=== PATIENT | female | born 1990 | race Caucasian/White ===

== ENCOUNTER 2018-09-04 01:04 | Inpatient (IN) | payer MEDICARE ==
[2018-09-04] VITALS (18 sets, daily range): BP systolic 95–118; BP diastolic 51–82
[~2018-09-04] VITALS: Ht 165.1 cm; Wt 61.8 kg
--- NOTE | 2018-09-04 01:13 | ED.ADGEN ---
Past History Past Medical History: Abscess, Diabetes, IBS, Other Past Surgical History: Other Past Surgical History Drainage of Axel-rectal / Gluteal abscess on 09/01 Smoking: Cigarettes Alcohol Use: Occasionally Drug Use: Marijuana Adult General Chief Complaint Chief Complaint ".. I ve been vomiting.. can't take my antibiotic pills ( Bactrim/ Metronidazole),, I got diabetes.. since age 4... my glucose meter show s too high... to read.. I first started getting sick.. about three weeks ago.. I felt like I had a vaginal discharge.. I went to the [facility] clinic.. they said it was normal to have a vaginal discharge... but I did not believe them.. so I made an apt. at [facility] [employer].... and by then I had what I thought was an in grown hair on my butt... but the put me on Flagyl and sulfa... but I could not afford the meds... the next thing I know... I had this big boil .. abscess thing on my butt.. and went to the [facility] ED... and I got admitted on 08/31.. they put me asleep and drained and packed the boils on my butt on the ... and discharged me on the ... but I have been vomiting and can't keep the meds down... been feeling like I have fever ... and chills and my sugars are up... ".. " I have just moved here from [place].. and have not been able to find a yet...." HPI HPI Patient is a 28 year old female who presents with above hx of nausea, vomiting, fever, chills , high glucose, with recent Incision, drainage and packing of gluteal perirectal abscess. Pt. has hx of known DM, peripheral neuropathy, gastroparesis, IBS. Pt. has hx of one with a miscarry. Pt. reports she had too many admissions for DKA to count in her life time. Pt. hx of STD and herpes. . Possible risk of exposure to HIV years ago. Was tested at that time and it was negative. No follow up tests. Last tetanus was 2013 after a dog bite. Pt. denies IV drug use, but does smoke tobacco and marijuana. Pt. denies any specific recent ill contacts. Pt. lives currently in [facility]. Review of Systems Review of Systems Constitutional: Hx. of fever or chills [] Eyes: Denies change in visual acuity, redness, or eye pain [] HENT: Denies nasal congestion or sore throat [] Respiratory: Denies cough or shortness of breath [] Cardiovascular: No additional information not addressed in HPI [] GI: Hx. of generalized abdominal pain, nausea, vomiting, . Denies bloody stools or diarrhea []Complaints of Rt. Gluteal and axel rectal abscess. : Denies dysuria or hematuria [] Musculoskeletal: Denies back pain or joint pain [] Integument: Denies rash or skin lesions [] Neurologic: Denies headache, focal weakness or sensory changes [] Endocrine: Hx. of polyuria All other systems were reviewed and found to be within normal limits, except as documented in this note. Family History Family History DM, HTN Current Medications Current Medications See nursing for home meds Allergies Allergies No known drug allergies Physical Exam Physical Exam Constitutional: in moderately acute distress, non-toxic appearance. [] HENT: Normocephalic, atraumatic, bilateral external ears normal, oropharynx dry , no oral exudates, nose normal. [] Eyes: PERRLA, EOMI, conjunctiva normal, no discharge. [] Neck: Normal range of motion, no tenderness, supple, no stridor. [] Cardiovascular:Tachycardia Heart rate regular rhythm, no murmur [] Lungs & Thorax: Bilateral breath sounds equal at apexes with scattered wheezes on auscultation [] Abdomen: Bowel sounds decreased, soft, generalized tenderness, no masses, no pulsatile masses. [Vaginal - no discharge. Lt. gluteal / axel-rectal cellulitis with packing. Packing removed- base incision drainage is dry. No obvious fluctuation. Skin: Warm, dry, no erythema, no rash. Tattoos. Poor turgor. Back: No tenderness, no CVA tenderness. [] Extremities: No tenderness, no cyanosis, no clubbing, ROM intact, no edema. [] Neurologic: Alert and oriented X 3, normal motor function, decreased plantar sensory function, no focal deficits noted. [] Psychologic: Affect anxious, judgement normal, mood normal. [] Current Patient Data Vital Signs Lab Results Laboratory Tests Test 09/04/18 01:25 Glucose (Fingerstick) 427 mg/dL (70-99) H EKG EKG My interpretation of EKG shows a sinus tachycardia at approximately 108 bpm. Does have nonspecific anterior septal changes but no findings acute STEMI with contralateral changes.[] Radiology/Procedures Radiology/Procedures My interpretation of chest x-ray and acute abdomen shows[] no acute cardiopulmonary findings. No free air in the diaphragm. Abdomen film shows nonspecific bowel gas pattern. Does have stool throughout colon suggestive of constipation. CT of pelvis shows no obvious perirectal abscess. See formal report when available. Course & Med Decision Making Course & Med Decision Making Pertinent Labs and Imaging studies reviewed. (See chart for details) Patient to be admitted to for further tx. and evaluation. [] Final Impression Final Impression Impression: 1. DM-Hyperglycemia- DKA (Veinous - ABG= 7.211,HCO3 11.9) 2. Hx of Axel-rectal, Lt gluteal abscess- Drainage and packing on 09/01 3. Financial noncompliance with antibiotics 4. Nausea/vomiting 5. SIR's/ Sepsis 6. Constipation 7. Dehydration 8. Thrombocytosis 422 9. Elevated lactic acid 2.1 10. Elevated Sed. Rate 30 [] Dragon Disclaimer Dragon Disclaimer This electronic medical record was generated, in whole or in part, using a voice recognition dictation system. Dragon Disclaimer This chart was dictated in whole or in part using Voice Recognition software in a busy, high-work load, and often noisy Emergency Department environment. It may contain unintended and wholly unrecognized errors or omissions. Discharge Summary Visit Information Final Diagnosis Problems Medical Problems: (1) DKA (diabetic ketoacidoses) Status: Acute Brief Hospital Course Lab Results Laboratory Tests Test 09/04/18 01:25 Glucose (Fingerstick) 427 mg/dL (70-99) Brief Hospital Course Ms. Colmenares is a 28 old female who presented with DKA- Admitted Dr. Bishop Discharge Information Condition at Discharge: Improved, Stable VIRGEN HAGAN MD Sep 04, 2018 01:13
[2018-09-04] MEDS ORDERED: VANCOMYCIN 1 GM in IV NORMAL SALINE 250ML 250 ML IV ONE (01:45)
[2018-09-04] MEDS ORDERED: IV NORMAL SALINE 1,000ML 1,000 ML IV ONE (02:00)
[2018-09-04] MEDS ORDERED: IV RINGERS SOLUTION,LACTATED 1,000 ML IV SCH ×3 (02:00→04:15)
[2018-09-04] MEDS ORDERED: FAMOTIDINE 20 MG/2 ML VIAL IVP ONE (02:00)
[2018-09-04] MEDS ORDERED: INSULIN REGULAR VIAL 150 UNIT in 0.9 % SODIUM CHLORIDE 150ML 150 ML IV ONE ×3 (02:00→04:15)
[2018-09-04] MEDS ORDERED: ONDANSETRON PF 4 MG/2 ML VIAL. IV ONE (02:00)
[2018-09-04] MEDS ORDERED: IV NORMAL SALINE 50ML 50 ML ONE (02:04)
[2018-09-04] MEDS ORDERED: cefTRIAXone SODIUM 1 GM VIAL ONE (02:04)
[2018-09-04] MEDS ORDERED: VANCOMYCIN 1 GM VIAL. ONE (02:04)
[2018-09-04] MEDS ORDERED: IV NORMAL SALINE 500ML 500 ML ONE (02:04)
[2018-09-04] MEDS ORDERED: 0.9 % SODIUM CHLORIDE 150ML 150 ML ONE (02:05)
[2018-09-04] MEDS ORDERED: CONTRAST GIVEN MC PRN (02:15)
[2018-09-04 02:29] LABS: BASO # 0.1 x10^3/uL (0.0-0.2); BASO % 1 % (0-3); EOS # 0.1 x10^3/uL (0.0-0.7); EOS % 1 % (0-3); HEMATOCRIT 45.7 % (36.0-47.0); HEMOGLOBIN 14.6 g/dL (12.0-15.5); LYMPH % 19 % (24-48); MEAN CORPUSCULAR HEMOGLOBIN 27 pg (25-35); MEAN CORPUSCULAR HGB CONC 32 g/dL (31-37); MEAN CORPUSCULAR VOLUME 83 fL (79-100); MONO # 0.3 x10^3/uL (0.0-1.1); MONO % 3 % (0-9); NEUT # 7.9 x10^3uL (1.8-7.7); NEUT % 76 % (31-73); PLATELET COUNT 422 x10^3/uL (140-400); RED BLOOD COUNT 5.51 x10^6/uL (3.50-5.40); RED CELL DISTRIBUTION WIDTH 16.5 % (11.5-14.5); WHITE BLOOD COUNT 10.4 x10^3/uL (4.0-11.0)
[2018-09-04] MEDS ORDERED: VANCOMYCIN 1.5 GM in IV NORMAL SALINE 500ML 500 ML IV ONE (02:30)
[2018-09-04] MEDS ORDERED: IOHEXOL 300 MG/ML 75 ML VIAL. IV ONE (02:30)
[2018-09-04 02:41] LABS: ALBUMIN 3.9 g/dL (3.4-5.0); CALCIUM 10.1 mg/dL (8.5-10.1); CREATININE 0.9 mg/dL (0.6-1.0); DIRECT BILIRUBIN 0.1 mg/dL (0.0-0.2); GFR 75.1; POTASSIUM 4.4 mmol/L (3.5-5.1); TOTAL BILIRUBIN 0.4 mg/dL (0.2-1.0); TOTAL PROTEIN 9.1 g/dL (6.4-8.2)
[2018-09-04 02:55] LABS: BILIRUBIN,URINE NEG (NEG); CLARITY,URINE CLEAR; COLOR,URINE STRAW; GLUCOSE,URINE 500 mg/dL (NEG); NITRITE,URINE NEG (NEG); UROBILINOGEN,URINE 0.2 mg/dL (0.2 mg/dL)
--- NOTE | 2018-09-04 02:55 | RAD ---
CT scan of the pelvis with contrast 09/04/2018 CLINICAL HISTORY: History of perirectal abscess post removal 3 days ago. Pelvic pain. Fever. TECHNIQUE: After the intravenous administration of 75 cc of Omnipaque 300, contiguous, 5 mm axial sections were obtained through the pelvis. One or more of the following individualized dose reduction techniques were utilized for this study: 1. Automated exposure control. 2. Adjustment of the mA and/or kV according to patient size. 3. Use of iterative reconstruction technique. FINDINGS: The urinary bladder is distended with urine. No adnexal mass is seen. Small amount of free fluid is seen within the pelvis. A moderate amount of stool is seen involving the rectum and sigmoid colon. The appendix is well-visualized and is within normal limits. No perirectal abscess is seen. The osseous structures are grossly intact. IMPRESSION: 1. Small amount of free fluid is seen within the pelvis. 2. No perirectal abscess is seen. Electronically signed by: Jabari Mendoza MD (09/04/2018 2:52 AM) [facility]
--- NOTE | 2018-09-04 02:56 | RAD ---
PA and lateral chest radiographs 09/04/2018 Clinical History: Weakness and fever. PA and lateral digital radiographs of the chest were obtained. No previous studies are available for comparison. The cardiac and mediastinal silhouettes are within normal limits in size and configuration. No pulmonary infiltrate is seen. No pleural effusion or pneumothorax is noted. The osseous structures are grossly intact. Impression: No radiographic evidence of active cardiopulmonary disease. Electronically signed by: Jabari Mendoza MD (09/04/2018 2:53 AM) [facility]
--- NOTE | 2018-09-04 02:57 | RAD ---
Two-view abdomen radiographs 09/04/2018 CLINICAL HISTORY: Weakness, nausea, vomiting and fever. Supine and erect AP digital radiographs of the abdomen/pelvis were obtained. The lung bases are clear. The abdominal bowel gas pattern is nonobstructive. A moderate amount of stool is seen throughout the colon. No radiopaque calculus is seen. There is no evidence of free air. The osseous structures are grossly intact. IMPRESSION: Nonobstructive bowel gas pattern. Electronically signed by: Jabari Mendoza MD (09/04/2018 2:54 AM) [facility]
[2018-09-04 02:58] LABS: BACTERIA,URINE FEW /HPF (0-FEW); SQUAMOUS EPITHELIAL CELL,UR FEW /LPF; WBC,URINE OCC /HPF (0-4)
[2018-09-04] MEDS ORDERED: DIPHTH,PERTUSS(ACELL),TET TOX 0.5 ML DISP.SYRIN. VAX IM ONE (03:00)
[2018-09-04 03:06] LABS: BARBITURATES NEG (NEG); BENZODIAZEPINES NEG (NEG); CANNABINOIDS NEG (NEG); COCAINE NEG (NEG); METHADONE NEG (NEG); OPIATES NEG (NEG); PHENCYCLIDINE NEG (NEG)
[2018-09-04 03:07] LABS: AMPHETAMINE/METHAMPHETAMINE NEG (NEG)
[2018-09-04 03:08] LABS: BGAS PH 7.21 (7.35-7.45)
[2018-09-04 03:25] LABS: SEDIMENTATION RATE 30 (0-25)
[2018-09-04] MEDS ORDERED: ONDANSETRON PF 4 MG/2 ML VIAL. IV PRN (04:15)
[2018-09-04] MEDS ORDERED: DULO30CA2 PO (05:03)
[2018-09-04] MEDS ORDERED: INSU100I17 SQ (05:03)
[2018-09-04] MEDS ORDERED: ACYC400T PO (05:03)
[2018-09-04] MEDS ORDERED: INSU100I32 SQ (05:03)
[2018-09-04] MEDS ORDERED: DOXE10CA PO (05:03)
[2018-09-04] MEDS: VANCOMYCIN PER PHARMACY MC PRN (05:55)
--- NOTE | 2018-09-04 06:24 | EKG ---
[address] [address] Test Date: 2018-09-03 Test Time: 12:19:47 Pat Name: JUSTIN ONEILL Department: Room: [facility] 1 Gender: F Load Dropper: : 1990 Requested By: VIRGEN HAGAN Order Number: [id number] Reading MD: Nigel Washington MD Measurements Intervals [place] Rate: 79 P: -14 NH: 154 QRS: -41 QRSD: 106 T: 26 QT: 410 QTc: 471 Interpretive Statements SINUS RHYTHM VENTRICULAR PREMATURE COMPLEX(ES) Electronically Signed On 09-06-2018 14:17:04 CDT by Nigel Washington MD
[2018-09-04] MEDS ORDERED: IPRATRPIUM/ALBUTEROL 0.5/2.5MG 3 ML NEBU. NEB SCH (08:00)
[2018-09-04] MEDS ORDERED: IV DEXTROSE 5 %-0.45 % NACL 1,000 ML IV SCH (08:45)
[2018-09-04] MEDS ORDERED: INSULIN REGULAR VIAL 150 UNIT in 0.9 % SODIUM CHLORIDE 150ML 150 ML IV PRN (08:45)
--- NOTE | 2018-09-04 11:28 | HP ---
ADMIT DATE: 09/04/2018 HISTORY OF PRESENT ILLNESS: The patient is a 28-year-old -[place] female patient who came to the Emergency Room complaining of recurrent bouts of nausea and vomiting. Her blood sugar was extremely high and she apparently was seen and did complain of some vaginal discharge. She was seen at [facility] and they told her that it was normal to have a vaginal discharge, but she did not believe them, so she made an appointment at [place] [employer] [employer]. By then, she had what seems an ingrown hair in her gluteal area and she was started on Flagyl and sulfa drugs, but she could not afford the medication and she subsequently developed a big boil or an abscess and she was seen at the Emergency Room of [facility] where she was admitted on 08/31/2018 and under general anesthesia, the abscess was opened and packed and she was discharged on 09/02/2018. However, she has been vomiting since that time, cannot keep any medication down. She felt that she has fever and chills. Her blood sugar has been extremely high. She apparently has moved from [facility] and has not had established a primary care physician here. She was evaluated in the Emergency Room and was found to be in diabetic ketoacidosis. She has also history of STDs and herpes genitalis and possible risk of exposure to HIV years ago. LABORATORY DATA: Her lab work on admission showed that her white cell count was 10,400. Her chemistry showed that her blood sugar was high at 427. Her anion gap was high, but bicarb was only 12. She has hyponatremia. She was found to have an abscess in the right gluteal area and was also admitted and started on IV antibiotics in the form of vancomycin, ceftriaxone and Flagyl. PAST MEDICAL HISTORY: Significant for type 1 insulin-dependent diabetes since she was 4 years old. She has genital herpes, peripheral neuropathy and questionable diabetic gastroparesis. PAST SURGICAL HISTORY: Significant for incision and drainage of her right gluteal abscess, but no other surgical intervention. ALLERGIES: She has no known drug allergies; however, she is allergic to BANANA and W[place]MELON. MEDICATIONS: She is currently on following medications: She is on acyclovir 400 mg at bedtime, doxepin 10 mg at bedtime, duloxetine for Cymbalta 30 mg at bedtime. She is on NovoLog insulin as insulin sliding scale and Basaglar KwikPen 15 units subcutaneously twice a day. FAMILY HISTORY: She has 3 brothers and 5 sisters, all younger and healthy. Her father is alive and healthy and mother is alive at the age of 45 and has problem with thyroid. SOCIAL HISTORY: She is , has no children. She smokes cigars, cigarettes and marijuana. Drinks alcohol occasionally. She was working in [employer]. REVIEW OF SYSTEMS: The patient denied any blurring of vision. She has astigmatism, but denied any glaucoma or macular degeneration. Denied any earache, tinnitus or sensorineural deafness. Denied any nosebleeds, stuffy nose or postnasal drip. Denied any sore throat, sore tongue, toothache, hoarseness of voice or difficulty swallowing. She did have recurrent bouts of nausea and vomiting. Denied any diarrhea. Denied any hematemesis, melena or hematochezia. Denied any dysuria, frequency or hematuria. Did complain of chills and rigors, although she has no fever on admission. PHYSICAL EXAMINATION: GENERAL: On arrival to the Emergency Room, she was tachypneic, but there was no pallor, jaundice, cyanosis, or thyromegaly. No jugular venous distention. No limb edema. VITAL SIGNS: Her heart rate was 105, blood pressure was 118/78, temperature was 97.7, respiratory rate 20, and oxygen saturation was 100% on room air. HEAD, EYES, EARS, NOSE AND THROAT: Showed normocephalic, atraumatic. NECK: Supple. HEART: Showed normal first and second heart sounds with no gallop, rub or murmur. CHEST: Clear to auscultation. No crepitation or rhonchi. ABDOMEN: Distended, soft, nontender. No guarding or rigidity. No organomegaly. All hernial orifices intact. Bowel sounds normal. NEUROLOGIC: She is awake, alert, responding appropriately. All cranial nerves intact. EXTREMITIES: She moves extremities without difficulty. LABORATORY DATA: Her lab work on admission showed that her white cell count was 10,400, hemoglobin 15, hematocrit 45, MCV 83 and platelet count of 422,000 with normal manual differential. Her blood gas showed a pH of 7.21, pCO2 of 30, pO2 of 32, bicarbonate 12, and oxygen saturation was 51% on FiO2 of 21%. Her prothrombin time was 9.5, INR 1, aPTT was 26. Her chemistry showed serum sodium of 132, potassium 4.54, chloride 92, bicarbonate 12, anion gap of 28, BUN 14, creatinine 0.9, estimated GFR was 75 mL per minute. Her glucose was 427, calcium was 7.1. Total bilirubin, AST, ALT, alkaline phosphatase were normal. Total protein was 9.1, albumin 3.9. Her amylase and lipase are normal. Her urinalysis was essentially unremarkable. Her test was negative and her toxic screen was negative. Her urine test was negative. IMPRESSION: In summary, this is a 28-year-old female patient who was admitted with mild diabetic ketoacidosis. She has also had right gluteal abscess, status post incision and drainage. PLAN: To continue the IV fluid, continue with insulin drip, continue with IV antibiotics in the form of ceftriaxone, vancomycin and Flagyl. SHAYAN LAKHANI MD DR: JASON/zhanna JOB#: [id number] / [id number]
[2018-09-04] MEDS ORDERED: INSULIN LISPRO 300 UNITS/3 ML INSULN.PEN. SQ SCH (11:30)
[2018-09-04] MEDS ORDERED: DEXTROSE 50% 25 GM / 50ML DISP.SYRIN. IV PRN (11:30)
[2018-09-04] MEDS: INSULIN LISPRO 300 UNITS/3 ML INSULN.PEN. SQ SCH ×2 (12:41→17:14)
[2018-09-04] MEDS: oxyCODONE/APAP 7.5/325 1 TAB TABLET PO PRN (15:31)
[2018-09-04] MEDS: VANCOMYCIN 1 GM in IV NORMAL SALINE 250ML 250 ML IV SCH (15:43)
[2018-09-04] MEDS ORDERED: diphenhydrAMINE HCL 25 MG CAPSULE PO PRN (16:00)
[2018-09-04] MEDS: INSULIN GLARGINE 300 UNITS/3 ML INSULN.PEN. SQ SCH (19:43)
[2018-09-04] MEDS: IV NORMAL SALINE 1,000ML 1,000 ML IV SCH (19:43)
[2018-09-04] MEDS: LACTOBACILLUS RHAMNOSUS GG 1 CAPSULE. PO SCH (19:45)
[2018-09-04] MEDS: POLYETHYLENE GLYCOL 3350 17 GM PACKET. PO SCH (19:45)
[2018-09-04] MEDS: DULoxetine HCL 30 MG CAPSULE.DR PO SCH (19:45)
[2018-09-04] MEDS: ACYCLOVIR 200 MG CAPSULE PO SCH (19:46)
[2018-09-04] MEDS: DOXEPIN HCL 10 MG CAPSULE PO SCH (19:46)
[2018-09-05] VITALS (8 sets, daily range): BP systolic 102–133; BP diastolic 67–89
[2018-09-05] MEDS: VANCOMYCIN 1 GM in IV NORMAL SALINE 250ML 250 ML IV SCH ×3 (03:36→23:58)
[2018-09-05] MEDS: oxyCODONE/APAP 7.5/325 1 TAB TABLET PO PRN ×5 (03:49→22:44)
[2018-09-05] MEDS: IV NORMAL SALINE 1,000ML 1,000 ML IV SCH ×2 (05:57→19:10)
[2018-09-05 06:55] LABS: BASO # 0.1 x10^3/uL (0.0-0.2); BASO % 1 % (0-3); EOS # 0.3 x10^3/uL (0.0-0.7); EOS % 4 % (0-3); HEMATOCRIT 31.9 % (36.0-47.0); HEMOGLOBIN 10.4 g/dL (12.0-15.5); LYMPH # 3.5 x10^3/uL (1.0-4.8); LYMPH % 35 % (24-48); MEAN CORPUSCULAR HEMOGLOBIN 26 pg (25-35); MEAN CORPUSCULAR HGB CONC 33 g/dL (31-37); MEAN CORPUSCULAR VOLUME 80 fL (79-100); MONO # 0.7 x10^3/uL (0.0-1.1); MONO % 7 % (0-9); NEUT # 5.3 x10^3uL (1.8-7.7); NEUT % 54 % (31-73); PLATELET COUNT 364 x10^3/uL (140-400); RED BLOOD COUNT 3.96 x10^6/uL (3.50-5.40); RED CELL DISTRIBUTION WIDTH 16.1 % (11.5-14.5); WHITE BLOOD COUNT 9.9 x10^3/uL (4.0-11.0)
[2018-09-05 06:58] LABS: CALCIUM 7.9 mg/dL (8.5-10.1); CREATININE 0.6 mg/dL (0.6-1.0); GFR 119.9; POTASSIUM 3.4 mmol/L (3.5-5.1)
[2018-09-05] MEDS: INSULIN LISPRO 300 UNITS/3 ML INSULN.PEN. SQ SCH ×4 (08:00→16:48)
[2018-09-05] MEDS: LACTOBACILLUS RHAMNOSUS GG 1 CAPSULE. PO SCH ×2 (10:06→20:57)
[2018-09-05] MEDS: INSULIN GLARGINE 300 UNITS/3 ML INSULN.PEN. SQ SCH ×2 (10:08→21:00)
[2018-09-05 16:03] LABS: VANC TR 6.1 mcg/mL (10.0-20.0)
[2018-09-05] MEDS: VANCOMYCIN PER PHARMACY MC PRN (16:32)
--- NOTE | 2018-09-05 20:05 | PN ---
DATE: 09/05/2018 SUBJECTIVE: The patient is sitting slightly propped up in bed, in no apparent respiratory distress. On questioning her, she denies any complaint. The nursing staff did not voice any concerns that she has an eventful night. PHYSICAL EXAMINATION: GENERAL: When I examined her, she looked pale, but no jaundice, cyanosis, or thyromegaly. No jugular venous distention. No limb edema. VITAL SIGNS: Her heart rate was 106, blood pressure was 129/89, temperature was 97.7, respiratory rate 20, and oxygen saturation was 93% on room air. HEAD, EYES, EARS, NOSE AND THROAT: Normocephalic, atraumatic. NECK: Supple. HEART: Showed normal first and second heart sounds. No gallop, rub or murmur. CHEST: Clear to auscultation. No crepitation or rhonchi. ABDOMEN: Distended, soft, nontender. No guarding or rigidity. No organomegaly. All hernial orifice intact. Bowel sounds normal. NEUROLOGIC: She was awake, alert, responding appropriately. All cranial nerves intact. She moves extremities without difficulty. She ambulates without assistance or assistive devices. Her intake was 2115, no output was recorded. LABORATORY DATA: As of this morning, her serum sodium was 137, potassium 3.4, chloride 105, bicarbonate 22, anion gap of 10, BUN 9, creatinine 0.6, estimated GFR was 120 mL per minute, her glucose was 154, calcium was 7.9. White cell count was 9900, hemoglobin 10.4, hematocrit 31.9, MCV 80 and platelet count 364,000. ASSESSMENT: 1. Diabetic ketoacidosis, resolved. Her anion gap is down from 28 to 10. 2. Type 1 diabetes mellitus. 3. Genital herpes. 4. Peripheral neuropathy. 5. Right gluteal abscess, status post incision and drainage. PLAN: To continue with IV fluid. She has also hypokalemia that will be replenished. Continue with IV antibiotic. Continue to monitor her blood sugar and adjust insulin as needed. If she remains stable tomorrow, she can be discharged home. SHAYAN LAKHANI MD DR: JASON/zhanna JOB#: [id number] / [id number]
[2018-09-05] MEDS: ACYCLOVIR 200 MG CAPSULE PO SCH (20:57)
[2018-09-05] MEDS: DOXEPIN HCL 10 MG CAPSULE PO SCH (20:57)
[2018-09-05] MEDS: POLYETHYLENE GLYCOL 3350 17 GM PACKET. PO SCH (20:57)
[2018-09-05] MEDS: DULoxetine HCL 30 MG CAPSULE.DR PO SCH (20:57)
[2018-09-06] MEDS: IV NORMAL SALINE 1,000ML 1,000 ML IV SCH ×2 (01:38→11:00)
[2018-09-06 06:10] VITALS: BP 110/72
[2018-09-06 07:12] LABS: CALCIUM 8.2 mg/dL (8.5-10.1); CREATININE 0.6 mg/dL (0.6-1.0); GFR 119.9; POTASSIUM 3.5 mmol/L (3.5-5.1)
[2018-09-06] MEDS: VANCOMYCIN 1 GM in IV NORMAL SALINE 250ML 250 ML IV SCH ×2 (08:00→08:49)
[2018-09-06] MEDS: LACTOBACILLUS RHAMNOSUS GG 1 CAPSULE. PO SCH (08:47)
[2018-09-06] MEDS: INSULIN GLARGINE 300 UNITS/3 ML INSULN.PEN. SQ SCH (08:58)
[2018-09-06] MEDS: oxyCODONE/APAP 7.5/325 1 TAB TABLET PO PRN (09:06)
[2018-09-06 10:45] VITALS: BP 121/75
[2018-09-06] MEDS: INSULIN LISPRO 300 UNITS/3 ML INSULN.PEN. SQ SCH (11:42)
[2018-09-06] MEDS ORDERED: SULF1TAB23 PO (12:27)
[2018-09-06] MEDS ORDERED: METR500T PO (12:27)
--- NOTE | 2018-09-06 13:20 | DS ---
DATE OF DISCHARGE: 09/06/2018 HISTORY OF PRESENT ILLNESS: The patient is a 28-year-old -[place] female patient came to the Emergency Room complaining recurrent bouts of nausea, vomiting. Her blood sugar was extremely high. She apparently was seen, did complain of some vaginal discharge. She was seen at [facility] and they told her that was normal to have a vaginal discharge. She does not believe in them, so she made an appointment at [facility] by then she had what seems to be an ingrown hair in her gluteal area. She was started on Flagyl and sulfa drugs, but she could not afford the medication and she subsequently developed big boil or an abscess that she was seen in the Emergency Room of [facility] where she was admitted and under general anesthesia, the abscess was opened and packed and was discharged on 09/02/2017. She apparently has been vomiting since that time, she cannot keep any of her medication down and therefore, she was evaluated in the Emergency Room ____ she was found to be in DKA, was admitted to the ICU, was started on IV fluid and insulin drip. She was also continued on IV vancomycin, Flagyl and Rocephin. She did very well. Her blood sugar is much better controlled. Her anion gap came down from 28 to 10. Her abscess is healing nicely from inside out without any surrounding erythema, tenderness and a decision was made to discharge her home to continue on her oral antibiotics. PHYSICAL EXAMINATION: GENERAL: When I saw her this afternoon, she was sitting at the edge of the bed comfortably in no apparent distress. She was slightly pale, but no jaundice, cyanosis, or thyromegaly. No jugular venous distension. No lower limb edema. VITAL SIGNS: Her heart rate was 77, blood pressure 121/75, temperature was 97.9, respiratory rate was 18 and oxygen saturation was 98%. HEAD, EYES, EARS, NOSE AND THROAT: Showed normocephalic, atraumatic. NECK: Supple. HEART: Showed normal first and second heart sounds. No gallop, rub or murmur. CHEST: Clear to auscultation. No crepitation or rhonchi. ABDOMEN: Distended, soft, nontender. No guarding or rigidity. No organomegaly. All hernial orifices are intact. Bowel sounds are normal. NEUROLOGIC: She is awake, alert, responding appropriately. All cranial nerves are intact. EXTREMITIES: She moves extremities without difficulty. She ambulates without assistance or assistive devices. Her gluteal abscess is healing nicely with healthy granulation tissue from inside out with no surrounding erythema, discharge or tenderness. LABORATORY WORK: As of this most recent white cell count was 9900, hemoglobin 10, hematocrit 32, MCV 80 and platelet count 264,000. Her chemistry as of this morning showed a serum sodium 142, potassium 3.5, chloride 108, bicarbonate 25, anion gap of 9, BUN 8, creatinine 0.6, estimated GFR was 120 mL per minute. Her glucose was 104, calcium was 8.2. Her HIV 1 and 2 antibodies were negative. Her tox screen was essentially negative. Urinalysis was unremarkable and her nasal screen for MRSA by PCR was negative. DISCHARGE MEDICATIONS: She was discharged home to continue on metronidazole 500 mg 3 times a day for 7 days, sulfamethoxazole/trimethoprim 1 tablet twice a day with food for 7 days, acyclovir 400 mg at bedtime, doxepin 10 mg at bedtime for depression, duloxetine 30 mg at bedtime. She is on NovoLog insulin as insulin sliding scale before meals Basaglar Kwikpen 15 units twice a day. FINAL DISCHARGE DIAGNOSES: 1. Diabetic ketoacidosis, resolved. 2. Type 1 diabetes mellitus. 3. Genital herpes. 4. Peripheral neuropathy. 5. Right gluteal abscess status post incision and drainage. SHAYAN LAKHANI MD DR: JASON/zhanna JOB#: [id number] / [id number]
== END 2018-09-06 13:57 | disposition home or self-care (01) | DRG 871 ==
LOC: ER 01:04 → ICU 01:30 → 1 SOUTH 09-05 06:33
PROVIDERS: ADMIT Internal Medicine; ATTEND Internal Medicine
DX: A41.9 Sepsis, unspecified organism (principal); E10.10 Type 1 diabetes mellitus with ketoacidosis without coma; L02.31 Cutaneous abscess of buttock; A60.00 Herpesviral infection of urogenital system, unspecified; E10.42 Type 1 diabetes mellitus with diabetic polyneuropathy; E10.43 Type 1 diabetes mellitus with diabetic autonomic (poly)neuropathy; E86.0 Dehydration; F12.90 Cannabis use, unspecified, uncomplicated; F17.210 Nicotine dependence, cigarettes, uncomplicated; F17.290 Nicotine dependence, other tobacco product, uncomplicated; K58.9 Irritable bowel syndrome, unspecified; L73.1 Pseudofolliculitis barbae; W54.0XXA Bitten by dog, initial encounter; Z79.4 Long term (current) use of insulin; Z82.49 Family history of ischemic heart disease and other diseases of the circulatory system; Z91.19 Patient's noncompliance with other medical treatment and regimen; Z83.3 Family history of diabetes mellitus
CPT/HCPCS: 36415; 71046; 72193; 74021; 80048; 80076; 80202; 80307; 81001; 81025; 82150; 82550; 82803; 82947; 83605; 83690; 84484; 84702; 85025; 85610; 85651; 85730; 86703; 87040; 87070; 87186; 87641; 93005; 94640; 96365; 96366; 96368; 96375; J0696; J1815; J2405; J3010; J3370; J3490; J7040; J7050; J7120; Q0163; Q9967; 99285-25; J7030

== ENCOUNTER 2019-07-23 23:18 | Emergency (ER) | payer MEDICARE ==
[~2019-07-23] VITALS: Ht 167.6 cm; Wt 59.5 kg
[~2019-07-23 23:18] MED LIST: ACYC400T PO; DOXE10CA PO; DULO30CA2 PO; INSU100I17 SQ; INSU100I32 SQ; METR500T PO; SULF1TAB23 PO
[2019-07-24] MEDS ORDERED: TRAM-48 PO (00:24)
[2019-07-24] MEDS ORDERED: CLIN150C14 PO (00:24)
--- NOTE | 2019-07-24 00:24 | PHYS DOC ---
Past History Past Medical History: Abscess, Diabetes, IBS, Other Additional Past Medical Histor: genital herpes Past Surgical History: Other Additional Past Surgical Histo: I & D of rt buttocks abcess Smoking: Cigarettes Alcohol Use: None Drug Use: Marijuana Adult General Chief Complaint Chief Complaint: DENTAL PROBLEM HPI HPI 29-year-old female presents with a chief complaint of dental pain. Patient with a previous tooth fracture. Patient was placed on antibiotics (Amoxil) which she completed last Thursday. Patient states since last Thursday increased swelling pain right facial. Review of Systems Review of Systems Constitutional: Denies fever or chills [] Eyes: Denies change in visual acuity, redness, or eye pain [] HENT: Denies nasal congestion or sore throat [positive dental pain] Respiratory: Denies cough or shortness of breath [] Cardiovascular: No additional information not addressed in HPI [] GI: Denies abdominal pain, nausea, vomiting, bloody stools or diarrhea [] : Denies dysuria or hematuria [] Musculoskeletal: Denies back pain or joint pain [] Integument: Denies rash or skin lesions [] Neurologic: Denies headache, focal weakness or sensory changes [] Endocrine: Denies polyuria or polydipsia [] All other systems were reviewed and found to be within normal limits, except as documented in this note. Current Medications Current Medications Current Medications Medications (Trade) Dose Ordered Sig/Juli Start Time Stop Time Status Last Admin Dose Admin Clindamycin HCl (Cleocin) 450 mg 1X ONCE 07/24/19 00:30 07/24/19 00:31 Allergies Allergies Allergies Coded Allergies Type Severity Reaction Last Updated Verified morphine Allergy Intermediate 07/23/19 Yes Physical Exam Physical Exam Constitutional: Well developed, well nourished, no acute distress, non-toxic appearance. [] HENT: Normocephalic, atraumatic, bilateral external ears normal, oropharynx moist, no oral exudates, nose normal. [swelling above right canine-- tender to palpation. No airway obstruction] Eyes: PERRLA, EOMI, conjunctiva normal, no discharge. [] Neck: Normal range of motion, no tenderness, supple, no stridor. [] Cardiovascular:Heart rate regular rhythm, no murmur [] Lungs & Thorax: Bilateral breath sounds clear to auscultation [] Abdomen: Bowel sounds normal, soft, no tenderness, no masses, no pulsatile masses. [] Skin: Warm, dry, no erythema, no rash. [] Back: No tenderness, no CVA tenderness. [] Extremities: No tenderness, no cyanosis, no clubbing, ROM intact, no edema. [] Neurologic: Alert and oriented X 3, normal motor function, normal sensory function, no focal deficits noted. [] Psychologic: Affect normal, judgement normal, mood normal. [] Current Patient Data Vital Signs Vital Signs Date Time Temp Pulse Resp B/P (MAP) Pulse Ox O2 Delivery O2 Flow Rate FiO2 07/23/19 23:25 98.4 100 16 121/75 (90) 100 Room Air Lab Results Laboratory Tests Test 07/24/19 00:03 POC Urine HCG, Qualitative hcg negative (Negative) EKG EKG [] Radiology/Procedures Radiology/Procedures [] Course & Med Decision Making Course & Med Decision Making Pertinent Labs and Imaging studies reviewed. (See chart for details) []Treated with Clindamycin 450mg PO and Norc 5mg Patient was DC home with Rx-- Patient advised to follow up with Dentist. Joselito Disclaimer Dragon Disclaimer This electronic medical record was generated, in whole or in part, using a voice recognition dictation system. Departure Departure: Impression: Primary Impression: Dental abscess Disposition: 01 HOME, SELF-CARE Condition: STABLE Referrals: LUIS MAHONEY (PCP) Patient to follow up with her dentist. Patient give information for dental clinics Patient Instructions: Dental Abscess Scripts Hydrocodone Bit/Acetaminophen (NORCO 5-325 TABLET) 1 Each Tablet 1 TAB PO TID, #20 TAB Prov: KOSTAS ORDAZ DO 07/24/19 Tramadol Hcl (ULTRAM) 50 Mg Tablet 1 TAB PO PRN Q6HRS PRN for pain MDD 4 Tablet(s) for 7 Days, #28 TAB 0 Refills Prov: KOSTAS ORDAZ DO 07/24/19 Clindamycin Hcl (CLINDAMYCIN HCL) 150 Mg Capsule 3 CAP PO QID for 10 Days, #120 CAP Prov: KOSTAS ORDAZ DO 07/24/19 KOSTAS ORDAZ DO Jul 24, 2019 00:24
[2019-07-24] MEDS ORDERED: CLINDAMYCIN HCL 150 MG CAPSULE PO ONE (00:30)
[2019-07-24] MEDS ORDERED: traMADol 50 MG TABLET ONE (00:37)
[2019-07-24 00:48] VITALS: BP 120/80
[2019-07-24] MEDS ORDERED: HYDR-3165 PO (00:51)
[2019-07-24] MEDS ORDERED: HYDROcodone/APAP 5/325MG 1 TAB TABLET ONE (00:53)
[2019-07-24] MEDS ORDERED: traMADol 50 MG TABLET PO ONE (01:00)
[2019-07-24] MEDS ORDERED: HYDROcodone/APAP 5/325MG 1 TAB TABLET PO ONE (01:30)
== END 2019-07-24 00:59 | disposition home or self-care (01) ==
LOC: ER 23:18
DX: K04.7 Periapical abscess without sinus (principal); E11.9 Type 2 diabetes mellitus without complications; F17.200 Nicotine dependence, unspecified, uncomplicated; Z88.5 Allergy status to narcotic agent
CPT/HCPCS: 81025; 99283

== ENCOUNTER 2020-01-11 03:00 | Inpatient (IN) | payer MEDICARE ==
[~2020-01-11] VITALS: Ht 160 cm; Wt 54.2 kg
[2020-01-11] VITALS (14 sets, daily range): BP systolic 97–132; BP diastolic 60–86
[~2020-01-11 03:00] MED LIST changes: +CLIN150C14 PO; +HYDR-3165 PO; +TRAM-48 PO
--- NOTE | 2020-01-11 03:05 | PHYS DOC ---
Past History Past Medical History: Abscess, Anxiety, Constipation, Depression, Diabetes, GERD, IBS, Other Additional Past Medical Histor: genital herpes Past Medical History Peripheral neuropathy Past Surgical History: Other Additional Past Surgical Histo: I & D of rt buttocks abcess Smoking: Cigarettes Alcohol Use: None Drug Use: Marijuana General Adult HPI: HPI: ".. I am sick..my stomach hurts..sick.. diabetes out..." Sick last 2 days... No nausea vomiting... Feel like a flu Patient is a 29 year old female who presents with above hx and complaints nausea, vomiting, hyperglycemia, and generalized abdomen pain. Patient states she has been ill the last couple days. Patient reports subjective fever and chills. Patient denies any intake of bad food. No recent travel. No specific ill contacts. Patient has longstanding history of diabetes. Patient normally follows at [facility]. Patient has known history of STDs, genital herpes, GERD, gastroparesis, peripheral neuropathy, cellulitis and abscess, patient has had previous admissions for hyperglycemia and ketoacidosis. Patient does have an insulin pump. Has been a diabetic since age 4. Review of Systems: Review of Systems: Constitutional: Subjective complaints of fever or chills Eyes: Denies change in visual acuity HENT: Denies nasal congestion or sore throat Respiratory: Denies cough or shortness of breath Cardiovascular: Denies chest pain or edema GI: Complains of generalized upper abdomen abdominal pain, nausea, vomiting,. Denies bloody stools or diarrhea : Denies dysuria Musculoskeletal: Denies back pain or joint pain Integument: Denies rash Neurologic: Denies headache, focal weakness or sensory changes Endocrine: Complains of frequent urination has no history of diabetes Lymphatic: Denies swollen glands Psychiatric: History of depression or anxiety Heart Score: HEART Score for Chest Pain: HEART Score for Chest Pain Response (Comments) Value History Slighlty/Non-Suspicious 0 ECG Nonspecific Repolarizatio 1 Age < 45 0 Risk Factors 1 or 2 Risk Factors 1 Total 2 Risk Factors: Risk Factors: DM, Current or recent (<one month) smoker, HTN, HLP, family history of CAD, obesity. Risk Scores: Score 0 - 3: 2.5% MACE over next 6 weeks - Discharge Home Score 4 - 6: 20.3% MACE over next 6 weeks - Admit for Clinical Observation Score 7 - 10: 72.7% MACE over next 6 weeks - Early Invasive Strategies Family History: Family History: The patient has 3 brothers and 5 sisters they are all healthy. Father and mother are healthy. Mother has a history of thyroid issues. Current Medications: Current Meds: See nursing for home meds Allergies: Allergies: Allergies Coded Allergies Type Severity Reaction Last Updated Verified morphine Allergy Intermediate 07/23/19 Yes Physical Exam: PE: Constitutional: in acute distress, non-toxic appearance. [] HENT: Normocephalic, atraumatic, bilateral external ears normal, oropharynx dry, no oral exudates, nose normal. [] Eyes: PERRLA, EOMI, conjunctiva normal, no discharge. [] Neck: Normal range of motion, no tenderness, supple, no stridor. [] Cardiovascular tachycardia:Heart rate regular rhythm, no murmur [] Lungs & Thorax: Bilateral breath sounds equal at apex with few scattered wheezes on auscultation [] Abdomen: Bowel sounds normal, soft, generalized upper abdomen tenderness, no masses, no pulsatile masses. Rebound to the left upper quadrant. Distended. Skin: Warm, dry, no erythema, no rash. Poor turgor Back: No tenderness, no CVA tenderness. [] Extremities: No tenderness, no cyanosis, no clubbing, ROM intact, no edema. No psoas sign Neurologic: Alert and oriented X 3, moves all extremities on request, reports decreased sensation in feet, no focal deficits noted. [] Psychologic: Affect anxious judgement normal, mood depressed affect EKG: EKG: My interpretation EKG shows a sinus tachycardia 117 bpm. Bimodal P waves. No findings acute STEMI of contralateral changes. [] Radiology/Procedures: Radiology/Procedures: My interpretation of acute abdomen film shows no free air under the diaphragm. Stool throughout the colon. [][address] [place] [id number] IMAGING REPORT Signed PATIENT: JUSTIN ONEILL ACCOUNT: [id number] : 1990 LOCATION: ICU AGE: 29 SEX: F EXAM STATUS: ADM IN ORD. PHYSICIAN: VIRGEN HAGAN MD REASON: Abdomen pain, nausea PROCEDURE: ACUTE ABDOMEN SERIES INDICATION: Reason: Abdomen pain, nausea / Spl. Instructions: / History: COMPARISON: September 04, 2018 IMPRESSION: 3 views of the chest and abdomen obtained. Mild interstitial and groundglass opacities within the lungs which could be from mild edema or infiltrate. Cardiac silhouette is unremarkable. Moderate stool within the colon with air scattered throughout the large and small bowel in a nonspecific but not grossly obstructive pattern. Electronically signed by: Chey Capone MD (01/11/2020 5:28 AM) [id number] DICTATED AND SIGNED BY: CHEY CAPONE MD DATE: 01/11/20527 CC: VIRGEN HAGAN MD; SHAYAN BISHOP MD; ANA ONEILL ~ Course & Med Decision Making: Course & Med Decision Making Pertinent Labs and Imaging studies reviewed. (See chart for details) Discussed presentation, testing and tx. plan with Dr. Bishop- Admit for further eval and tx. Impression: 1. Nausea and vomiting 2. Dehydration 3. Hyperglycemia 499-DKA 4. Leukocytosis 11.4 5. Viral syndrome 6. Hyponatremia 132 7. UTI 8. Hx genital herpes [] Dragon Disclaimer: Dragon Disclaimer: This electronic medical record was generated, in whole or in part, using a voice recognition dictation system. Departure Departure: Disposition: 01 HOME/RESIDENCE PRIOR TO ADM Condition: STABLE Referrals: PCP,NO (PCP) Justification of Admission: Justification of Admission: Justification of Admission Dx: Yes DKA: DKA Dragon Disclaimer This chart was dictated in whole or in part using Voice Recognition software in a busy, high-work load, and often noisy Emergency Department environment. It may contain unintended and wholly unrecognized errors or omissions. Dragon Disclaimer This chart was dictated in whole or in part using Voice Recognition software in a busy, high-work load, and often noisy Emergency Department environment. It may contain unintended and wholly unrecognized errors or omissions. VIRGEN HAGAN MD Jan 11, 2020 03:05
[2020-01-11] MEDS ORDERED: IV RINGERS SOLUTION,LACTATED 1,000 ML IV SCH ×2 (03:30→05:30)
[2020-01-11] MEDS ORDERED: KETOROLAC 30 MG/ML VIAL. IVP ONE (03:30)
[2020-01-11] MEDS ORDERED: ONDANSETRON PF 4 MG/2 ML VIAL. IVP ONE (03:30)
[2020-01-11] MEDS ORDERED: FAMOTIDINE 20 MG/2 ML VIAL IVP ONE (03:30)
[2020-01-11] MEDS ORDERED: IV NORMAL SALINE 100ML 100 ML ONE ×2 (03:49→03:51)
[2020-01-11 03:54] LABS: BASO # 0.1 x10^3/uL (0.0-0.2); BASO % 1 % (0-3); EOS # 0.2 x10^3/uL (0.0-0.7); EOS % 1 % (0-3); HEMATOCRIT 42.4 % (36.0-47.0); HEMOGLOBIN 13.5 g/dL (12.0-15.5); LYMPH # 2.3 x10^3/uL (1.0-4.8); LYMPH % 20 % (24-48); MEAN CORPUSCULAR HEMOGLOBIN 27 pg (25-35); MEAN CORPUSCULAR HGB CONC 32 g/dL (31-37); MEAN CORPUSCULAR VOLUME 84 fL (79-100); MONO # 0.4 x10^3/uL (0.0-1.1); MONO % 3 % (0-9); NEUT # 8.5 x10^3uL (1.8-7.7); NEUT % 75 % (31-73); PLATELET COUNT 363 x10^3/uL (140-400); RED BLOOD COUNT 5.06 x10^6/uL (3.50-5.40); RED CELL DISTRIBUTION WIDTH 15.5 % (11.5-14.5); WHITE BLOOD COUNT 11.4 x10^3/uL (4.0-11.0)
[2020-01-11] MEDS ORDERED: INSULIN REGULAR VIAL 100 UNIT in IV NORMAL SALINE 100ML 100 ML IV ONE (04:00)
[2020-01-11] MEDS ORDERED: IV NORMAL SALINE 1,000ML 1,000 ML IV ONE (04:00)
[2020-01-11 04:07] LABS: CALCIUM 9.3 mg/dL (8.5-10.1); CREATININE 1.2 mg/dL (0.6-1.0); GFR 64.7; POTASSIUM 4.5 mmol/L (3.5-5.1)
[2020-01-11 04:09] LABS: DIRECT BILIRUBIN 0.2 mg/dL (0.0-0.2); TOTAL BILIRUBIN 0.5 mg/dL (0.2-1.0); TOTAL PROTEIN 8.5 g/dL (6.4-8.2)
[2020-01-11 04:34] LABS: BGAS PH 7.24 (7.35-7.45)
[2020-01-11] MEDS ORDERED: ACETAMINOPHEN 325 MG TABLET PO PRN (04:45)
--- NOTE | 2020-01-11 04:52 | EKG ---
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
[2020-01-11 05:07] LABS: BARBITURATES NEG (NEG); BENZODIAZEPINES NEG (NEG); CANNABINOIDS NEG (NEG); COCAINE NEG (NEG); METHADONE NEG (NEG); OPIATES NEG (NEG); PHENCYCLIDINE NEG (NEG)
[2020-01-11 05:09] LABS: AMPHETAMINE/METHAMPHETAMINE NEG (NEG)
[2020-01-11 05:14] LABS: BILIRUBIN,URINE NEG (NEG); CLARITY,URINE CLEAR; COLOR,URINE YELLOW; GLUCOSE,URINE 500 mg/dL (NEG); NITRITE,URINE NEG (NEG); RBC,URINE OCC /HPF (0-2); UROBILINOGEN,URINE 0.2 mg/dL (0.2 mg/dL)
[2020-01-11 05:15] LABS: BACTERIA,URINE FEW /HPF (0-FEW); SQUAMOUS EPITHELIAL CELL,UR FEW /LPF
--- NOTE | 2020-01-11 05:15 | NUR ---
Admission Note: Pt transported via EMS from ED to ICU room 2, pt able to ambulate from cart to bed w/standby assist, steady gait observed, pt lethargic and requires redirection several times to complete task, VSS, no c/o pain or n/v at this time, BS on arrival to unit 341, IV fluids and insulin infusing, ensured pt's insulin pump was turned off, admission documentation completed, home medications entered but not ordered at this time (will advise dayshift), will continue to monitor.
--- NOTE | 2020-01-11 05:31 | RAD ---
INDICATION: Reason: Abdomen pain, nausea / Spl. Instructions: / History: COMPARISON: September 04, 2018 IMPRESSION: 3 views of the chest and abdomen obtained. Mild interstitial and groundglass opacities within the lungs which could be from mild edema or infiltrate. Cardiac silhouette is unremarkable. Moderate stool within the colon with air scattered throughout the large and small bowel in a nonspecific but not grossly obstructive pattern. Electronically signed by: Jian Garcia MD (01/11/2020 5:28 AM) [id number]
[2020-01-11] MEDS ORDERED: AMOX1TAB11 PO (05:56)
[2020-01-11] MEDS ORDERED: ALBUTEROL SULFATE 2.5 MG/3 ML NEBU. NEB PRN (06:30)
[2020-01-11] MEDS: ONDANSETRON PF 4 MG/2 ML VIAL. IVP PRN ×2 (07:38→18:18)
[2020-01-11] MEDS ORDERED: IPRATRPIUM/ALBUTEROL 0.5/2.5MG 3 ML NEBU. NEB SCH (08:00)
[2020-01-11] MEDS: INSULIN GLARGINE SYRINGE. SQ SCH ×2 (08:26→20:29)
[2020-01-11] MEDS: INSULIN LISPRO 300 UNITS/3 ML VIAL. SQ SCH ×4 (08:27→20:29)
[2020-01-11] MEDS: HYDROmorphone PF 1 MG/ML DISP.SYRIN IV PRN ×2 (08:28→18:19)
--- NOTE | 2020-01-11 08:30 | HP ---
ADMIT DATE: 01/11/2020 ATTENDING PHYSICIAN: Dr. Reddy. CHIEF COMPLAINT: "My stomach hurts. HISTORY OF PRESENT ILLNESS: The patient is a 29-year-old -[place] female with multiple previous admissions well known to us. She is a type 1 diabetic. She has been noncompliant. She comes in with a 2-day history of nausea, vomiting, hyperglycemia, generalized diffuse nonspecific abdominal pain. She reports subjective fevers and chills, but no documentation of this. No recent intake of bad food. No recent travel. She has a longstanding history of type 1 diabetes since age 4. She normally follows at [facility]. She has not been compliant with her meds. In the ED, her blood sugar was 499 mg/dL. She was admitted with recurrent DKA and noncompliance of meds. She has an insulin pump, but may not be filled and this has been turned off. She was started on insulin drip in the ED. PAST MEDICAL HISTORY: Significant for frequent infections, abscess, generalized anxiety, depression, constipation, gastroesophageal reflux disease, irritable bowel syndrome and generalized debilitation along with genital herpes. PAST SURGICAL HISTORY: Includes incision and drainage of buttock abscess. ALLERGIES: She has allergic reaction to MORPHINE, which causes hives. CURRENT MEDICINES: Include insulin pump along with amoxicillin started for ear infection. She states that the amoxicillin was making her nauseated. SOCIAL HISTORY: She is a nonsmoker, nondrinker. FAMILY HISTORY: She has 3 brothers and 5 sisters who are healthy. Mom and dad are otherwise healthy. Mom has a history of thyroid disease. REVIEW OF SYSTEMS: Significant for the generalized abdominal pain. She denied any recent discharges. She denied any recent sexual contact. No recent travel. All other systems reviewed and turned to be negative. PHYSICAL EXAMINATION: GENERAL: When I saw her, this is a chronically ill-appearing young female. INITIAL VITAL SIGNS: Showed a blood pressure of 129/83 mmHg, pulse is 103 and regular, temperature 98.1 degrees Fahrenheit, oxygen saturation 98% on room air. HEENT: Head is without trauma. Pupils are reactive. Sclerae are nonicteric. The oropharynx is clear. NECK: Supple, no bruits. LUNGS: Shallow respirations. CARDIOVASCULAR: Showed regular heart tones. No gallops. Peripheral pulses are palpable and full. ABDOMEN: Soft. Minimal guarding on palpation of lower quadrant, left and right, diffuse in nature. There is no rebound tenderness. Bowel sounds were hypoactive. No masses palpated. EXTREMITIES: Showed no cyanosis or edema. NEUROLOGIC: Focally intact. Speech is fluent. She had no focal deficit. SKIN: Warm and dry. PERTINENT LABORATORY STUDIES: Admission blood sugar over 490, hemoglobin is 13.5 g/dL with white count of 11,400. ASSESSMENT: 1. This 29-year-old female, type 1 diabetic, has been noncompliant. She is admitted again with diabetic ketoacidosis. 2. Dehydration. 3. Recent ear infection, placed on amoxicillin. 4. History of sexually transmitted diseases. 5. Underlying depression with anxiety. 6. Irritable bowel syndrome. PLAN: 1. Admit to the inpatient unit. 2. Insulin drip has been started. 3. Gentle IV hydration. 4. Rocephin started in the ED will be continued. 5. When sugars come down, we will get her back on the insulin regimen and off of the drip. We will advance diet as tolerated. She is on clear liquids for now. GÉNESIS REDDY MD DR: NORA/zhanna JOB#: [id number] / [id number]
--- NOTE | 2020-01-11 09:00 | NUR ---
Dr Maravilla at bedside appx 0800, orders to obtain IV access, IV rocephin, and to DC Insulin gtt. Accuchecks Q4 hours.
--- NOTE | 2020-01-11 09:34 | NUR ---
IP: patient PUI for COVID-19, requires contact and airborne precautions.
--- NOTE | 2020-01-11 10:30 | NUR ---
Pt is able to tolerate food and fluids, Dr. Maravilla dc'd IVF at this time.
[2020-01-11] MEDS: LACTOBACILLUS RHAMNOSUS GG 1 CAPSULE. PO SCH ×2 (10:40→20:31)
[2020-01-11] MEDS: ACYCLOVIR 200 MG CAPSULE PO SCH (20:31)
[2020-01-12] VITALS (10 sets, daily range): BP systolic 101–125; BP diastolic 63–90
[2020-01-12 06:55] LABS: BASO # 0.1 x10^3/uL (0.0-0.2); BASO % 1 % (0-3); EOS # 0.3 x10^3/uL (0.0-0.7); EOS % 2 % (0-3); HEMATOCRIT 37.5 % (36.0-47.0); LYMPH # 3.4 x10^3/uL (1.0-4.8); LYMPH % 30 % (24-48); MEAN CORPUSCULAR HEMOGLOBIN 26 pg (25-35); MEAN CORPUSCULAR HGB CONC 32 g/dL (31-37); MEAN CORPUSCULAR VOLUME 82 fL (79-100); MONO # 0.7 x10^3/uL (0.0-1.1); MONO % 6 % (0-9); NEUT # 7.1 x10^3uL (1.8-7.7); NEUT % 61 % (31-73); PLATELET COUNT 309 x10^3/uL (140-400); RED BLOOD COUNT 4.57 x10^6/uL (3.50-5.40); RED CELL DISTRIBUTION WIDTH 15.4 % (11.5-14.5); WHITE BLOOD COUNT 11.6 x10^3/uL (4.0-11.0)
[2020-01-12 06:56] LABS: CALCIUM 8.4 mg/dL (8.5-10.1); CREATININE 0.8 mg/dL (0.6-1.0); GFR 103.3; POTASSIUM 3.4 mmol/L (3.5-5.1)
[2020-01-12] MEDS: INSULIN LISPRO 300 UNITS/3 ML VIAL. SQ SCH ×4 (07:30→20:56)
[2020-01-12] MEDS: LACTOBACILLUS RHAMNOSUS GG 1 CAPSULE. PO SCH ×2 (07:57→20:02)
[2020-01-12] MEDS: HYDROmorphone PF 1 MG/ML DISP.SYRIN IV PRN ×4 (08:26→20:54)
[2020-01-12] MEDS: INSULIN GLARGINE SYRINGE. SQ SCH ×2 (08:57→20:56)
[2020-01-12] MEDS ORDERED: INSULIN LISPRO 300 UNITS/3 ML VIAL. SQ ONE (09:15)
--- NOTE | 2020-01-12 11:45 | PN ---
DATE: 01/12/2020 ATTENDING PHYSICIAN: Dr. Reddy. SUBJECTIVE: Still has fairly nonspecific lower abdominal pain, non-localizing. She does not seem too uncomfortable. She is still getting her intravenous Dilaudid for pain. LABORATORY DATA: Her sugars are better; it is in the low 100s. Her hemoglobin today is 12.0 g/dL, white count 11,600. Sugars are improved and her creatinine 0.8 mg percent. Anion gap is down to 10 with a CO2 of 24 millimoles per liter. OBJECTIVE: VITAL SIGNS: Blood pressure is 125/84 mmHg, pulse still is a little bit high at 102, sinus rhythm, oxygen saturation 97% on room air. HEENT: Head is without trauma. Pupils are reactive. Mucous membranes still dry. NECK: Supple, no bruits identified. LUNGS: Good breath sounds. CARDIOVASCULAR: Showed regular heart tones without any gallops. ABDOMEN: Soft. There is minimal guarding, but no rebound tenderness. Bowel sounds were hypoactive. EXTREMITIES: Showed no cyanosis or edema. NEUROLOGIC: Focally intact. Speech is fluent. ASSESSMENT: 1. A 29-year-old female, type 1 diabetic with noncompliance. She was admitted with diabetic ketoacidosis, corrected. 2. Dehydration, rehydrated. 3. Recent ear infection. 4. History of sexually transmitted diseases. 5. Underlying depression with anxiety. 6. Irritable bowel syndrome. Discussed in detail with her. PLAN: 1. Discontinue the insulin drip. 2. Discontinue IV fluids. 3. Advance diet as tolerated. 4. Continue Rocephin ordered in the ED. 5. I will try to start her on some antispasmodic medication and information regarding irritable bowel syndrome. GÉNESIS REDDY MD DR: NORA/zhanna JOB#: [id number] / [id number]
[2020-01-12] MEDS: DICYCLOMINE HCL 20 MG TABLET PO SCH ×2 (14:34→20:02)
[2020-01-12] MEDS ORDERED: INSULIN LISPRO 300 UNITS/3 ML VIAL. SQ SCH (15:30)
[2020-01-12] MEDS ORDERED: diphenhydrAMINE HCL 25 MG CAPSULE PO ONE (19:00)
[2020-01-12] MEDS: ACYCLOVIR 200 MG CAPSULE PO SCH (20:02)
[2020-01-12] MEDS ORDERED: diphenhydrAMINE HCL 25 MG CAPSULE PO PRN (23:00)
[2020-01-13] MEDS: HYDROmorphone PF 1 MG/ML DISP.SYRIN IV PRN ×3 (00:13→09:13)
[2020-01-13 02:00] VITALS: BP 115/78
[2020-01-13 05:55] VITALS: BP 105/69
[2020-01-13] MEDS: INSULIN LISPRO 300 UNITS/3 ML VIAL. SQ SCH (07:30)
[2020-01-13] MEDS: LACTOBACILLUS RHAMNOSUS GG 1 CAPSULE. PO SCH (08:12)
[2020-01-13] MEDS: DICYCLOMINE HCL 20 MG TABLET PO SCH (08:36)
[2020-01-13 09:39] VITALS: BP 108/74
--- NOTE | 2020-01-13 11:14 | NUR ---
Discharge Note: JUSTIN ONEILL Discharged from ICU to [facility]. Discharge instructions and discharge home medications reviewed with Patient and a copy given. All questions have been answered and understanding verbalized. The following instructions and handouts were given: Discontinued lines and drains: Peripheral IV dc'd. All belongings grabbed and sent home with patient. Patient discharged to Home or Self Care with Self via Wheelchair. Wheeled pt to 's car.
--- NOTE | 2020-01-13 11:23 | DS ---
DATE OF DISCHARGE: 01/13/2020 ATTENDING PHYSICIAN: Dr. Reddy. FINAL DISCHARGE DIAGNOSES: 1. Diabetic ketoacidosis. 2. Type 1 diabetic with noncompliance. 3. Dehydration, rehydrated. 4. Recent urine infection. 5. History of sexually transmitted diseases. 6. Underlying depression with anxiety. 7. Irritable bowel syndrome. HISTORY AND PHYSICAL: This 29-year-old female known type 1 diabetic was admitted with a 2-day history of nausea, vomiting, hyperglycemia. Blood sugar of 600. Generalized diffuse nonspecific abdominal pain. She reports subjective fevers and chills, but no documentation of this. PHYSICAL EXAMINATION: Please see the dictated note. PERTINENT LABORATORY AND X-RAY STUDIES: Admission hemoglobin was 12.0 g/dL, white count 11,600. Chemistry panel, multiple sugars were drawn and it was down in the low 100s prior to discharge. Admission sugar was over 600. Urinalysis showed clear urine, specific gravity 1.020. Beta hCG was negative. Toxicology screen was entirely negative for recreational drugs. In the ED, acute abdominal series showed moderate stool within the colon, no obstructive pattern identified. COURSE IN THE HOSPITAL: The patient was admitted. She was started on insulin drip with marked improvement. Diet was advanced. Pain was managed with intermittent intravenous narcotics. I did start her on some Bentyl, but she developed itch. I will recommend outpatient . Her sugars were better. By the third hospital day, she was up and ambulating and wanted to go home. Abdominal pain has since improved. She will continue her insulin through her pump. She is capable of filling it up with the insulin. In addition, I wrote a script for Percocet 10 one every 6 hours as needed for pain, #30 with no refills and extend tabs one b.i.d. She will follow up with her PCP in [place]. Strong encouragement to monitor blood sugars and to keep her insulin pump functioning. The patient was then discharged from our hospital in stable condition with explicit instructions and followup care. GÉNESIS REDDY MD DR: NORA/zhanna JOB#: [id number] / [id number]
== END 2020-01-13 11:06 | disposition home or self-care (01) | DRG 638 ==
LOC: ER 03:00 → ICU 04:30
PROVIDERS: ADMIT Internal Medicine; ATTEND Internal Medicine
DX: E10.10 Type 1 diabetes mellitus with ketoacidosis without coma (principal); E87.1 Hypo-osmolality and hyponatremia; N39.0 Urinary tract infection, site not specified; Z96.41 Presence of insulin pump (external) (internal); K21.9 Gastro-esophageal reflux disease without esophagitis; F32.9 Major depressive disorder, single episode, unspecified; K59.00 Constipation, unspecified; B34.9 Viral infection, unspecified; F12.90 Cannabis use, unspecified, uncomplicated; E10.43 Type 1 diabetes mellitus with diabetic autonomic (poly)neuropathy; E10.42 Type 1 diabetes mellitus with diabetic polyneuropathy; F41.8 Other specified anxiety disorders; K31.84 Gastroparesis; T38.3X6A Underdosing of insulin and oral hypoglycemic [antidiabetic] drugs, initial encounter; F41.1 Generalized anxiety disorder; E86.0 Dehydration; Z20.828 Contact with and (suspected) exposure to other viral communicable diseases; F17.210 Nicotine dependence, cigarettes, uncomplicated; K58.9 Irritable bowel syndrome, unspecified; Z88.5 Allergy status to narcotic agent; Z91.14 Patient's other noncompliance with medication regimen; Y92.89 Other specified places as the place of occurrence of the external cause; Z86.19 Personal history of other infectious and parasitic diseases
CPT/HCPCS: 36415; 36600; 74022; 80048; 80076; 80307; 81001; 81025; 82150; 82803; 82947; 83605; 83690; 84484; 84702; 85025; 85610; 85730; 87040; 87086; 93005; 96361; 96374; 96375; J0696; J1170; J1815; J1885; J2405; J3490; J7120; Q0163; 99285-25; J7030; U0003-CS

== ENCOUNTER 2020-08-24 11:35 | Emergency (ER) | payer MEDICARE ==
[~2020-08-24] VITALS: Ht 167.6 cm; Wt 56.5 kg
[~2020-08-24 11:35] MED LIST changes: +AMOX1TAB11 PO; -CLIN150C14 PO; +CLIN150C15 PO
--- NOTE | 2020-08-24 11:42 | PHYS DOC ---
Past History Past Medical History: Abscess, Anxiety, Constipation, Depression, Diabetes, GERD, IBS, Other Additional Past Medical Histor: genital herpes Past Surgical History: No Surgical History Additional Past Surgical Histo: I & D of rt buttocks abcess Smoking: Cigarettes Alcohol Use: None Drug Use: Marijuana Adult General Chief Complaint Chief Complaint: HYPERGLYCEMIA HPI HPI Patient is a 30-year-old female presenting from local long-term facility for altered mental status. Patient has an extensive and complicated past medical history most significant for poorly controlled type 1 diabetes, recent history of inadequately treated UTI, and paraplegia from supposedly traumatic cardiac arrest. Patient has had recent care at [facility]. Was started on p.o. Bactrim in outpatient setting approximately 3 weeks ago for UTI but did not take this as prescribed. She subsequently bounced back to hospital 2 days ago for worsened glycemic control and altered mental status where she received x2 total doses of Rocephin and subsequently discharged to SNF for continued medical care. On discharge to SNF, there was apparent c onfusion with how to operate her insulin pump. Patient's blood sugars were read as high and decision was made to give 10 units insulin this morning at 8 AM and after no glycemic improvement, an additional 20 units was given at 11 AM. Nonetheless, patient's mentation continued to fluctuate and patient became more lethargic prompting fpc to call EMS for transport to our facility. On arrival to our ER, patient speaking in few word sentences only and clearly altered. Reports having pain "everywhere" but specifically in her back due to being on gurney. She states "they did this to me" regarding care at SNF. Denies any recent fever, diaphoresis, chest pain, shortness of breath or cough, abdominal pain. States she has an insulin pump but admits poor medication compliance due to pain and being weak Review of Systems Review of Systems Fourteen body systems of review of systems have been reviewed. See HPI for pertinent positives and negative responses, other blanco all other systems are negative, non-pertinent or non-contributory Allergies Allergies Allergies Coded Allergies Type Severity Reaction Last Updated Verified morphine Allergy Intermediate 01/11/20 Yes Physical Exam Physical Exam Constitutional: Pt is oriented to person but not place and time. Clinically dehydrated. Lethargic throughout examination speaking in few word sentences only HEENT: Head: Normocephalic and atraumatic. TMs clear, no hemotympanum Conjunctivae and EOM are normal. Pupils are equal, round, and reactive to light. Oropharynx is clear and dry with poor dentition present No hematomas or lacerations or abrasions to face or scalp OP clear, no blood, no malocclusion, dentition intact Nares clear, no nasal septal hematoma Midface stable Neck: C-spine midline nontender, no step-offs Cardiovascular: Tachycardic, regular rhythm and normal heart sounds. Pulmonary/Chest: Effort normal and breath sounds normal. No overt respiratory distress. No wheezes. CTA bilaterally Abdominal: Soft. Bowel sounds are normal. Pt exhibits no distension. There is no tenderness. Musculoskeletal: No bony tenderness to extremities, no obvious visible and/or palpable deformities, unable to move lower extremities bilaterally Chest wall stable Pelvis stable and non-tender No vertebral TTP and spine without stepoffs Neurological: GCS 14 (e4, v4, m6) Moving bilateral upper and lower extremities, able to wiggle all fingers. No motor or sensory function present in bilateral lower extremities Skin: Skin is warm and dry. No abrasions, no lacerations Psychiatric: Unable to accurately assess due to acute delirium. Visual hallucinations were reported by SNF Current Patient Data Vital Signs Vital Signs Date Time Temp Pulse Resp B/P (MAP) Pulse Ox O2 Delivery O2 Flow Rate FiO2 08/24/20 16:34 116 16 111/73 (86) 100 Room Air 08/24/20 16:00 110 16 104/69 (81) 99 Room Air 08/24/20 15:45 108 33 100/70 (80) 100 Room Air 08/24/20 14:46 111 20 100/66 (77) 100 Room Air 08/24/20 14:04 112 18 112/87 (95) 100 Room Air 08/24/20 13:51 104 18 122/71 (88) 98 Room Air 08/24/20 13:34 106 18 123/80 (94) 98 Room Air 08/24/20 13:19 110 18 106/67 (80) 98 Room Air 08/24/20 12:00 112 23 95/69 (78) 98 Room Air 08/24/20 11:35 95.0 115 21 82/57 (65) 98 Room Air Lab Results Laboratory Tests Test 08/24/20 12:05 08/24/20 12:10 08/24/20 12:27 08/24/20 12:28 White Blood Count 25.9 x10^3/uL Red Blood Count 4.46 x10^6/uL Hemoglobin 10.9 g/dL Hematocrit 35.4 % Mean Corpuscular Volume 79 fL Mean Corpuscular Hemoglobin 24 pg Mean Corpuscular Hemoglobin Concent 31 g/dL Red Cell Distribution Width 17.1 % Platelet Count 668 x10^3/uL Neutrophils (%) (Auto) 88 % Lymphocytes (%) (Auto) 10 % Monocytes (%) (Auto) 2 % Eosinophils (%) (Auto) 0 % Basophils (%) (Auto) 1 % Neutrophils # (Auto) 22.7 x10^3uL Lymphocytes # (Auto) 2.5 x10^3/uL Monocytes # (Auto) 0.6 x10^3/uL Eosinophils # (Auto) 0.0 x10^3/uL Basophils # (Auto) 0.1 x10^3/uL Platelet Estimate Pending Sodium Level 130 mmol/L Potassium Level 3.5 mmol/L Chloride Level 91 mmol/L Carbon Dioxide Level 11 mmol/L Anion Gap 28 Blood Urea Nitrogen 37 mg/dL Creatinine 1.3 mg/dL Estimated GFR (Cockcroft-Gault) 58.6 BUN/Creatinine Ratio 28 Glucose Level 516 mg/dL Lactic Acid Level 2.4 mmol/L Calcium Level 9.8 mg/dL Total Bilirubin 0.4 mg/dL Aspartate Amino Transf (AST/SGOT) 15 U/L Alanine Aminotransferase (ALT/SGPT) 26 U/L Alkaline Phosphatase 132 U/L Troponin I Quantitative < 0.017 ng/mL Total Protein 8.1 g/dL Albumin 2.8 g/dL Albumin/Globulin Ratio 0.5 Acetone Level Sm pos Bedside Venous pH 7.23 Bedside Venous pCO2 21 mmHg Bedside Venous pO2 43 mmHg Venous Blood HCO3 9 mmol/L POC Venous O2 Saturation (Kirit) 72 % Bedside FiO2 21 Urine Collection Type Unknown Urine Color Colorless Urine Clarity Hazy Urine pH 5.0 Urine Specific Stites 1.020 Urine Protein 100 mg/dl Urine Glucose (UA) >=1000 mg/dL Urine Ketones (Stick) >=160 mg/dL Urine Blood Large Urine Nitrite Neg Urine Bilirubin Small Urine Urobilinogen Dipstick 0.2 mg/dL Urine Leukocyte Esterase Small Urine RBC Tntc /HPF Urine WBC Tntc /HPF Urine Squamous Epithelial Cells None /LPF Urine Bacteria 0 /HPF Urine Test Negative Glucose (Fingerstick) 456 mg/dL Test 08/24/20 13:25 08/24/20 14:28 08/24/20 15:53 08/24/20 16:00 Bedside Venous pH 7.24 7.27 Bedside Venous pCO2 24 mmHg 26 mmHg Bedside Venous pO2 45 mmHg 49 mmHg Venous Blood HCO3 10 mmol/L 12 mmol/L POC Venous O2 Saturation (Kirit) 75 % 80 % Bedside FiO2 21 21 Glucose (Fingerstick) 348 mg/dL Sodium Level 130 mmol/L Potassium Level 3.4 mmol/L Chloride Level 97 mmol/L Carbon Dioxide Level 13 mmol/L Anion Gap 20 Blood Urea Nitrogen 38 mg/dL Creatinine 1.0 mg/dL Estimated GFR (Cockcroft-Gault) 79.3 Glucose Level 306 mg/dL Calcium Level 8.4 mg/dL Lactic Acid Level 0.7 mmol/L Test 08/24/20 16:24 Glucose (Fingerstick) 311 mg/dL Current Medications Medications (Trade) Dose Ordered Sig/Juli Route PRN Reason Start Time Stop Time Status Last Admin Dose Admin Sodium Chloride 1,000 ml @ 1,000 mls/hr Q1H IV 08/24/20 12:00 08/24/20 12:59 DC 08/24/20 13:16 Sodium Chloride 500 ml @ 0 mls/hr 1X ONCE IV 08/24/20 14:30 08/24/20 14:31 DC 08/24/20 14:41 Levofloxacin/ Dextrose 150 ml @ 100 mls/hr 1X ONCE IV 08/24/20 14:30 08/24/20 15:59 DC 08/24/20 14:42 Potassium Chloride/Sodium Chloride 1,000 ml @ 250 mls/hr 1X ONCE IV 08/24/20 14:45 08/24/20 18:44 08/24/20 15:06 Insulin Human Regular (HumuLIN R VIAL) 5 unit 1X ONCE IV 08/24/20 14:45 08/24/20 14:46 DC 08/24/20 15:12 Insulin Human Regular 100 unit/ Sodium Chloride 101 ml @ 0 mls/hr CONT PRN IV SEE I/O RECORD 08/24/20 14:45 08/24/20 15:11 Dextrose (Dextrose 50%-Water Syringe) 12.5 gm PRN Q15MIN PRN IV LOW BLOOD SUGAR 08/24/20 14:45 EKG EKG EKG ordered and interpreted by myself at 1220 hrs. as sinus rhythm at 113 bpm, unremarkable intervals, no axis deviation, no acute ischemic findings, no STEMI Radiology/Procedures Radiology/Procedures PROCEDURE: CHEST AP ONLY INDICATION: Reason: tachycardia / Spl. Instructions: / History: COMPARISON: September 04, 2018 FINDINGS: Single view of chest obtained. There is some mild disorganization of the pulmonary markings bilaterally with mild interstitial prominence. Cardiac silhouette is unremarkable. IMPRESSION: * Mild interstitial prominence bilaterally which could be from mild pulmonary vascular congestion or interstitial infiltrate. There is also a couple of nodular densities seen in the upper lungs bilaterally with causes such as round atelectasis or pneumonia within the differential. A neoplastic nodule would be unlikely in a patient of this age in the absence of known history of neoplasm. Electronically signed by: Jian Garcia MD (08/24/2020 2:44 PM) [id number] Heart Score C/O Chest Pain: No HEART Score for Chest Pain: HEART Score for Chest Pain Response (Comments) Value History Slighlty/Non-Suspicious 0 ECG Normal 0 Age < 45 0 Risk Factors 1 or 2 Risk Factors 1 Total 1 Risk Factors: Risk Factors: DM, Current or recent (<one month) smoker, HTN, HLP, family history of CAD, obesity. Risk Scores: Risk Factors: DM, Current or recent (<one month) smoker, HTN, HLP, family history of CAD, obesity. Course & Med Decision Making Course & Med Decision Making Lethargic patient with tachycardia and hypotension presenting with patent airway. Limited history exam obtained and concerning for sepsis due to likely untreated UTI and DKA. Physical exam findings grossly nonconcerning POC glucose obtained and high. Unable to obtain peripheral IV access due to gross dehydration of patient, patient refusing EJ attempt or IV central line attempt, decision made to place right femoral central venous line that was placed using ultrasound without complication Immediate fluid resuscitation ensued with improvement in patient's tachycardia, BP and mentation. There was a delay in administering insulin while in ER given reports of 30 total units of insulin given prior to arrival. Subsequent drip was started while in ER [facility] contacted and case reviewed. Limited hospital documents reviewed, appears patient failed outpatient antibiotic due to noncompliance and did not receive adequate treatment for complicated UTI prior to discharge to SNF. Discussed need for transfer but there was fear that they could not handle patient due to acuity and recommended an outside facility for higher acuity of care for endocrinology consultation due to ongoing issues and a noncompliant type I diabetic with insulin pump [facility] contacted and case discussed at length. Joint decision was made to start IV Levaquin for complicated UTI and suspect pulmonary infiltrate. Patient ultimately accepted under the care of Dr. Flores for continued ICU medical management Patient and updated on proposed plan of care that involved hospital transfer to [facility] for admission, they were both agreeable. Patient still requesting narcotics at this time, I reviewed prior hospital charts which demonstrated pain seeking behavior in addition to reviewing prescription drug monitoring program which shows intermittent benzodiazepine and Dilaudid use. There is no indication for such medication at present Repeat blood work performed while in ER showed minimal improvement in serum glucose levels but improvement in pH and anion gap prior to ER departure via EMS to [facility] Critical Care Time This patient required critical care. Due to the fact that the patient required a significant amount of one on one physician - patient contact time, ordering and review of studies, arranging urgent treatment with development of a management plan, evaluation of patients response to treatment with frequent reassessments, and discussions with other providers this patient required 65 minutes of critical care time. Critical care time was indicated due to the inherent instability and/or potential for instability in this patient. The critical care time that is allocated to this patient is above and beyond any time spent on any other billable procedures performed on this patient. Dragon Disclaimer Dragon Disclaimer This electronic medical record was generated, in whole or in part, using a voice recognition dictation system. Central Line Central Line : Central Line Lumen: triple Central Line Procedure: betadine prep, sterile drapes applied, sterile dressing applied Central Line Postion: femoral (R) Complications: none Central Line Post Position: sutured, good blood return, position confirmed w/ CXR Progress Discussed need for central line placement due to difficulty obtaining peripheral IV. Patient declining IO, EJ and/or ultrasound-guided internal jugular lines Patient was amenable to femoral stick due to paraplegia and lack of feeling of lower extremities. No family available to discuss need for procedure. Patient's capacity questionable but she was willing to undergo femoral stick. We proceeded with this due to medical necessity Ultrasound guidance was used, sterile precautions followed with right femoral central venous line placed on first attempt without any complications. Placement was confirmed with subsequent venous gas draw confirming venous placement Departure Departure: Impression: Primary Impression: DKA (diabetic ketoacidoses) Additional Impressions: Type 1 diabetes mellitus Acute metabolic encephalopathy Sepsis secondary to UTI Personal history of noncompliance with medical treatment and regimen Disposition: 02 DC/TRF OTHER SHORT TERM HOS ([facility]) Admitting Physician: Other (Dr. Flores) Condition: STABLE Referrals: ANA ONEILL (PCP) Problem Qualifiers ERIK YAÑEZ DO Aug 24, 2020 11:42
[2020-08-24] MEDS ORDERED: IV NORMAL SALINE 1,000ML 1,000 ML IV SCH (12:00)
[2020-08-24 12:43] LABS: BASO # 0.1 x10^3/uL (0.0-0.2); BASO % 1 % (0-3); EOS % 0 % (0-3); HEMATOCRIT 35.4 % (36.0-47.0); HEMOGLOBIN 10.9 g/dL (12.0-15.5); LYMPH # 2.5 x10^3/uL (1.0-4.8); LYMPH % 10 % (24-48); MEAN CORPUSCULAR HEMOGLOBIN 24 pg (25-35); MEAN CORPUSCULAR HGB CONC 31 g/dL (31-37); MEAN CORPUSCULAR VOLUME 79 fL (79-100); MONO # 0.6 x10^3/uL (0.0-1.1); MONO % 2 % (0-9); NEUT # 22.7 x10^3uL (1.8-7.7); NEUT % 88 % (31-73); PLATELET COUNT 668 x10^3/uL (140-400); RED BLOOD COUNT 4.46 x10^6/uL (3.50-5.40); RED CELL DISTRIBUTION WIDTH 17.1 % (11.5-14.5); WHITE BLOOD COUNT 25.9 x10^3/uL (4.0-11.0)
[2020-08-24 12:49] LABS: ALBUMIN 2.8 g/dL (3.4-5.0); ALBUMIN/GLOBULIN RATIO 0.5 (1.0-1.7); CALCIUM 9.8 mg/dL (8.5-10.1); CREATININE 1.3 mg/dL (0.6-1.0); GFR 58.6; POTASSIUM 3.5 mmol/L (3.5-5.1); TOTAL BILIRUBIN 0.4 mg/dL (0.2-1.0); TOTAL PROTEIN 8.1 g/dL (6.4-8.2)
[2020-08-24 12:53] LABS: BILIRUBIN,URINE SMALL (NEG); COLOR,URINE COLORLESS; GLUCOSE,URINE >=1000 mg/dL (NEG); NITRITE,URINE NEG (NEG); UROBILINOGEN,URINE 0.2 mg/dL (0.2 mg/dL)
[2020-08-24 12:54] LABS: BACTERIA,URINE 0 /HPF (0-FEW); CLARITY,URINE HAZY; RBC,URINE TNTC /HPF (0-2); WBC,URINE TNTC /HPF (0-4)
[2020-08-24 12:55] LABS: U PREG PATIENT NEGATIVE (NEG)
[2020-08-24] MEDS ORDERED: IV NORMAL SALINE 500ML 500 ML IV ONE (14:30)
[2020-08-24] MEDS ORDERED: INSULIN REGULAR 100 UNIT/ML 3ML VIAL. IV ONE (14:45)
[2020-08-24] MEDS ORDERED: DEXTROSE 50% 25 GM / 50ML DISP.SYRIN. IV PRN (14:45)
[2020-08-24] MEDS ORDERED: INSULIN REGULAR VIAL 100 UNIT in IV NORMAL SALINE 100ML 100 ML IV PRN (14:45)
[2020-08-24] MEDS ORDERED: POTASSIUM CL 20MEQ-0.45% NACL 1,000 ML IV ONE (14:45)
--- NOTE | 2020-08-24 14:46 | RAD ---
INDICATION: Reason: tachycardia / Spl. Instructions: / History: COMPARISON: September 04, 2018 FINDINGS: Single view of chest obtained. There is some mild disorganization of the pulmonary markings bilaterally with mild interstitial promi nence. Cardiac silhouette is unremarkable. IMPRESSION: * Mild interstitial prominence bilaterally which could be from mild pulmonary vascular congestion or interstitial infiltrate. There is also a couple of nodular densities seen in the upper lungs bilater ally with causes such as round atelectasis or pneumonia within the differential. A neoplastic nodule would be unlikely in a patient of this age in the absence of known history of neoplasm. Electronically signed by: Jian Garcia MD (08/24/2020 2:44 PM) [id number]
--- NOTE | 2020-08-24 14:59 | EKG ---
[facility] ED [facility] [place] [id number] Test Date: 2020-08-24 Test Time: 12:16:02 Pat Name: JUSTIN ONEILL Department: Room: Gender: F Tool Liaison: : 1990 Requested By: ERIK YAÑEZ Order Number: [id number] Reading MD: Measurements Intervals [place] Rate: 113 P: 68 IN: 144 QRS: 67 QRSD: 80 T: 0 QT: 326 QTc: 453 Interpretive Statements SINUS TACHYCARDIA LEFT ATRIAL ABNORMALITY ABNORMAL ECG RI6.02 No previous ECG available for comparison
[2020-08-24 16:34] VITALS: BP 111/73
[2020-08-24 16:43] LABS: CALCIUM 8.4 mg/dL (8.5-10.1); GFR 79.3; POTASSIUM 3.4 mmol/L (3.5-5.1)
[2020-08-24 17:52] LABS: % LYMPHS 8 % (24-48); % MONOS 5 % (0-10); % SEGS 87 % (35-66)
[2020-08-24 17:53] LABS: HYPOCHROMIA SLIGHT; PLT ESTIMATE INCREASED (ADEQUATE)
== END 2020-08-24 17:18 | disposition short-term general hospital (02) ==
LOC: ER 11:35
DX: A41.9 Sepsis, unspecified organism (principal); E10.10 Type 1 diabetes mellitus with ketoacidosis without coma; G93.41 Metabolic encephalopathy; N39.0 Urinary tract infection, site not specified; F41.9 Anxiety disorder, unspecified; F32.9 Major depressive disorder, single episode, unspecified; K21.9 Gastro-esophageal reflux disease without esophagitis; K58.9 Irritable bowel syndrome, unspecified; F17.210 Nicotine dependence, cigarettes, uncomplicated; Z91.14 Patient's other noncompliance with medication regimen; Z88.5 Allergy status to narcotic agent
CPT/HCPCS: 36415; 36556; 71045; 80048; 80053; 81001; 81025; 82010; 82803; 82947; 83605; 84484; 85007; 85025; 87040; 87086; 87106; 93005; 96361; 96365; 96366; 96368; 96376; 99291; J1815; J1956; J7030; J7040